=== PATIENT | female | born 1975 | race Caucasian/White ===

== ENCOUNTER 2024-12-12 08:01 | Emergency (ER) | payer BC, SELFPAY ==
[2024-12-12 08:15] VITALS: BP 119/78; PULSE 94; RESP 18; TEMP 36.4; O2SAT 97; BMI 23.1
--- NOTE | 2024-12-12 08:19 | XR_ITS ---
Examination: CT abdomen and pelvis without contrast. Coronal 3-D reconstructions. Sagittal 2-D reconstructions. Date and time of exam:December 12, 2024, 0831 hours INDICATIONS: Nausea vomiting diarrhea beginning 2 days ago, hysterectomy gastric bypass operations CTDI: vol (mGy): 9.36 DLP: (mGycm): 507 Technique: Axial images of the abdomen have been obtained, 3 mm slice thickness Intravenous contrast material has not been administered. Low dose protocols were performed. One or more of the following dose reduction techniques were used; automated exposure control, adjustment of the mA and/or KV according to patient size, use of iterative reconstruction technique. Findings: Lap band device. No focal liver or splenic lesions No pancreatic mass No renal or ureteral calculi, no hydronephrosis Fluid distended colon Fluid distended small bowel loops Absent appendix No diverticulitis Absent uterus No pelvic mass Bilateral intact IMPRESSION: Colonic ileus Suspicious for small bowel obstruction, consider Gastrografin small bowel series follow-up
--- NOTE | 2024-12-12 08:20 | PD.EDRME ---
Rapid Medical Screening Exam [facility] Arrival date/time: 12/12/24 08:01 49-year-old female with history of lap band surgery, appendectomy, hysterectomy presents with complaints of generalized abdominal pain, nausea and diarrhea Chief Complaint: Abdominal Pain Vital signs: Vital Signs Temperature 97.6 F 12/12/24 08:15 Pulse Rate 94 12/12/24 08:15 Respiratory Rate 18 12/12/24 08:15 Blood Pressure 119/78 12/12/24 08:15 Pulse Oximetry (%) 97 12/12/24 08:15 Oxygen Delivery Method Room Air 12/12/24 08:15
[2024-12-12 09:02] LABS: Basophils # (Auto) 0.1 Thou/mm3 (0.0-0.2); Basophils % (Auto) 0 % (0-2.5); Eosinophils # (Auto) 0.2 Thou/mm3 (0.0-0.5); Eosinophils % (Auto) 1 % (0-10); Hematocrit 48.1 % (36.0-46.0); Hemoglobin 15.7 g/dL (12.0-16.0); Immature Granulocytes Auto 0.03 Thou/mm3 (0.00-0.00); Lymphocytes # (Auto) 1.5 Thou/mm3 (1.0-4.8); Lymphocytes % (Auto) 12 % (10-50); Mean Corpuscular HGB Conc 32.6 g/dl (31.0-37.0); Mean Corpuscular Hemoglobin 29.7 pg (25.0-35.0); Mean Corpuscular Volume 91 fL (80-100); Monocytes # (Auto) 1.1 Thou/mm3 (0.0-0.8); Monocytes % (Auto) 9 % (0-12); Neutrophils # (Auto) 9.6 Thou/mm3 (1.8-7.7); Neutrophils % (Auto) 78 % (37-80); Nucleated Red Blood Cell # 0.00 Thou/mm3 (0.00-0.00); Nucleated Red Blood Cell % 0 /100 WBC (0); Platelet Count 302 Thou/mm3 (140-440); RDW Standard Deviation 47.6 fL (36.4-46.3); Red Blood Count 5.29 Miln/mm3 (4.00-5.20); White Blood Count 12.4 Thou/mm3 (3.6-11.0)
[2024-12-12] MEDS: METOCLOPRAMIDE 5 MG TABLET 10 MG PO (09:07)
[2024-12-12] MEDS: FAMOTIDINE 20 MG TABLET PO (09:07)
[2024-12-12 09:31] LABS: Alanine Aminotransferase 28 U/L (10-49); Albumin, Serum 4.8 gm/dL (3.5-5.0); Albumin/Globulin Ratio 1.7 (1.2-2.2); Alkaline Phosphatase 94 U/L (46-116); Anion Gap 11 (7-16); Aspartate Amino Transferase 40 U/L (0-34); BUN/Creatinine Ratio 19 Ratio (12-20); Bilirubin,Total 0.8 mg/dL (0.3-1.2); Blood Urea Nitrogen 19 mg/dL (9-23); Calcium 10.1 mg/dL (8.3-10.6); Calcium (Corrected) 10.1 mg/dL (8.5-10.1); Carbon Dioxide 28.5 mMol/L (20.0-31.0); Chloride 101 mMol/L (98-107); Creatinine (Component) 1.0 mg/dL (0.6-1.3); Estimated Creatinine Clearance 62.3 mL/min (>60); Globulin 2.9 gm/dL (2.3-3.5); Glucose 98 mg/dL (74-106); Lipase 43 U/L (12-53); Osmolality,Calculated 281 (275-295); Potassium 3.6 mMol/L (3.4-5.1); Sodium 140 mMol/L (136-145); Total Protein 7.7 gm/dL (5.7-8.2); eGFR > 60 See Note
--- NOTE | 2024-12-12 14:12 | PC.NURSE ---
called for pt from lobby/outside, no [phone]
--- NOTE | 2024-12-12 15:44 | PC.NURSE ---
[phone]
== END 2024-12-12 15:45 | disposition left against medical advice (07) ==
PROVIDERS: Nurse Practitioner Primary Care; Emergency Provider Emergency Medicine; PCP Nurse Practitioner Family
DX: R10.84 Generalized abdominal pain (principal); R19.7 Diarrhea, unspecified; R11.2 Nausea with vomiting, unspecified; Z53.29 Procedure and treatment not carried out because of patient's decision for other reasons
CPT/HCPCS: 36415; 74176; 80053; 81001; 83690; 85025; 99283; A9270